=== PATIENT | female | born 1960 | race Caucasian/White ===

== ENCOUNTER → 2016-12-13 | Day surgery (SDC) | payer BC ==
[~2016-12-13] MED LIST: ACCUPRIL PO; ASPIRIN EC81 M1 PO; ASPIRIN PO; COREG3.125 MG PO; DULERA 100 MCG/13 GM INH; ESTRADIOL-NORE1 EAC1 PO; FLOVENT DISKUS50 MCG; HYDROCHLOROTHIA25 MG PO; K-DUR20 ME1 PO; NORVASC PO; PRILOSEC20 MG PO; QUINAPRIL HCL20 MG PO; TRIAMTERENE PO; TRIAMTERENE-HC1 EAC1 PO; ZOFRAN ODT4 MG PO
--- NOTE | ~2016-12-13 | OR ---
Unit #: [id number] #: [id number] Patient: SUSANA RASHID [id number] [address] [id number] MR#: [id number] NAME: SUSANA RASHID. ROOM: Date of Procedure: 12/13/2016 Admission Date: 12/13/2016 Surgeon: Shankar Barksdale M.D. : 1960 Attending Physician: Shankar Barksdale M.D. Primary Care Physician: Alberto Ge M.D. OPERATIVE REPORT PREOPERATIVE DIAGNOSES 1. Reflux symptoms resistant to medications. 2. Screening colonoscopy. POSTOPERATIVE DIAGNOSES 1. Reflux symptoms resistant to medications. 2. Screening colonoscopy. PROCEDURES PERFORMED 1. Esophagogastroduodenoscopy. 2. Biopsy of antrum for Helicobacter pylori testing. 3. Colonoscopy to cecum. 4. Polypectomy with electrocautery snare at 70 cm. ANESTHESIA Monitored anesthesia care. FINDINGS The patient was found on upper endoscopy to have mild gastritis and mild distal esophagitis. On colonoscopy, the patient was found to have a few scattered shallow rare diverticula and a polyp was excised at 70 cm. SPECIMENS Sent to pathology. COMPLICATIONS None apparent. CONDITION The patient tolerated the procedure well. INDICATIONS FOR PROCEDURE The patient is a 56-year-old white female, who presents at this time with reflux symptoms resistant to medications. She has also had some intermittent shortness of breath and wheezing. She was seen by Dr. Torrez of ENT and this was felt to possibly be secondary to reflux. She presents at this time for evaluation by upper endoscopy and for screening colonoscopy. DESCRIPTION OF PROCEDURE After obtaining informed consent, the patient was brought to the endoscopy Unit #: [id number] #: [id number] Patient: SUSANA RASHID suite and after adequate monitored anesthesia care, had the endoscope placed through the mouth into the upper esophagus under direct vision. It was advanced to the second portion of the duodenum without difficulty with the lumen always in view. The duodenum was normal as was the duodenal bulb. The pylorus opened normally. There was some mild distal gastritis present and a biopsy was obtained for Helicobacter pylori testing. On retroflexing back to the GE junction, the patient was found to have no significant abnormality seen in the proximal third, middle third, or incisura. There was no obvious hiatal hernia seen. On pulling back above the GE junction, there was some mild distal esophagitis. There was no stenosis, stricture, or neoplasm seen. The remaining portion of the esophagus was within normal limits. Laryngeal structures were grossly normal as viewed from above. At this point in time, the colonoscope was placed through the anus and slowly advanced to the level of the cecum without difficulty with the lumen always in view. The cecum was normal as was the ileocecal valve. The ascending colon was normal as was the hepatic flexure, transverse colon, and splenic flexure. In the proximal descending colon at 70 cm, a small polyp was found. It was excised completely with electrocautery snare, retrieved with a mucus trap, and sent to pathology. There was good hemostasis. The remaining portion of the descending colon and sigmoid colon were normal except for an occasional rare shallow diverticulum. No other abnormalities were seen in the sigmoid colon, rectosigmoid, or rectum. On retroflexing in the rectum to the anorectal junction, there was no obvious abnormality seen. The scope was removed without difficulty. The patient tolerated the procedure well and went from the endoscopy suite to recovery area in stable condition. RECOMMENDATIONS High-fiber diet, lots of liquids, tucks or wipes p.r.n. Gastroesophageal reflux sheet given. Diverticular sheet given. Follow up p.r.n. Dictated by... Curtis Trevino/april TD: 12/13/2016 18:42 JOB #: [id number] CC: Michele Torrez M.D. [facility] Alberto Ge M.D. OPERATIVE REPORT Page 1 of 1 X Shankar Barksdale MD X PROCEDURE OPERATIVE NOTE
== END | disposition home or self-care (01) ==
LOC: COPS 05:36
DX: K29.70 Gastritis, unspecified, without bleeding (principal); K21.0 Gastro-esophageal reflux disease with esophagitis; Z12.11 Encounter for screening for malignant neoplasm of colon; D12.4 Benign neoplasm of descending colon; K57.30 Diverticulosis of large intestine without perforation or abscess without bleeding; I10 Essential (primary) hypertension; R06.02 Shortness of breath; R06.2 Wheezing; Z86.79 Personal history of other diseases of the circulatory system; Z98.51 Tubal ligation status
CPT/HCPCS: 87077; 88305; J2250